=== PATIENT | female | born 1995 | race Caucasian/White ===

== ENCOUNTER 2021-03-12 22:51 | Emergency (ER) | payer OTHER ==
[2021-03-12 23:25] VITALS: BP 111/71; PULSE 79; TEMP 98.8; BMI 32.9
[2021-03-13 02:32] LABS: EPI CELLS 12 /uL (0-25.1); HYALINE CASTS 2 /uL (0-3.1); PH,URINE 6.5 (5.0-8.0); URINE APPEARANCE CLEAR; URINE BACTERIA 178 /uL (0-1359); URINE BILIRUBIN NEGATIVE (NEGATIVE); URINE COLOR YELLOW; URINE GLUCOSE (UA) NEGATIVE (NEGATIVE); URINE KETONE TRACE (NEGATIVE); URINE LEUK ESTERASE NEGATIVE (NEGATIVE); URINE NITRITE NEGATIVE (NEGATIVE); URINE PROTEIN NEGATIVE (NEGATIVE); URINE RBC 19 /uL (0-23.9); URINE UROBILINOGEN 0.2 mg/dL (0.2-1.0); URINE WBC 7 /uL (0-25.8)
[2021-03-13] MEDS ORDERED: CEPHALEXIN MONOHYDRATE 500 MG CAPSULE (UD) PO ONE (02:35)
== END 2021-03-13 03:04 | disposition home or self-care (01) ==
LOC: JER 22:51
DX: O20.0 Threatened abortion (principal); Z3A.01 Less than 8 weeks gestation of pregnancy
CPT/HCPCS: 76801-TC; 81003; 99284-25

== ENCOUNTER 2021-10-16 08:05 | Inpatient (IN) | payer OTHER ==
[2021-10-16 08:56] VITALS: BMI 37.5
[2021-10-16] MEDS ORDERED: OXYTOCIN 30 UNITS in 0.9% NS 30 UNIT/500 ML INFUS.BAG IVPB ONE (09:52)
[2021-10-16] MEDS: ELECTROLYTE-148 SOLN 1,000 ML IV SCH ×2 (09:59→16:39)
[2021-10-16] MEDS ORDERED: OXYTOCIN 30 UNITS in 0.9% NS 30 UNIT/500 ML INFUS.BAG IVPB SCH (12:00)
[2021-10-16] MEDS ORDERED: FENTANYL/BUPIVACAINE/NS/PF - PCEA - 50 ML DISP.SYRIN EP ONE ×2 (15:23→19:54)
[2021-10-16] MEDS ORDERED: BUPIVACAINE HCL/PF 0.25% (2.5MG/ML) 10 ML VIAL ONE (15:31)
[2021-10-16] MEDS: FENTANYL/BUPIVACAINE/NS/PF - PCEA - 50 ML DISP.SYRIN EP SCH ×2 (16:10→19:55)
[2021-10-16] MEDS ORDERED: NALOXONE HCL 0.4 MG/ML VIAL IVPUSH PRN (16:17)
[2021-10-16] MEDS ORDERED: OXYTOCIN 20 UNITS in 0.9% NS 20 UNIT/1,000 ML INFUS.BAG IV ONE (19:49)
[2021-10-16] MEDS ORDERED: LIDOCAINE HCL 1% PRESERVATIVE FREE - 30ML VIAL ONE (19:49)
[2021-10-16] MEDS ORDERED: BENZOCAINE 20% 57 GM BOTTLE TP PRN (22:35)
[2021-10-16] MEDS ORDERED: oxyCODONE HCL 5 MG TABLET PO PRN (22:35)
[2021-10-16] MEDS ORDERED: ACETAMINOPHEN 325 MG TABLET (FP) PO PRN (22:35)
[2021-10-16] MEDS ORDERED: WITCH HAZEL 50% (TUCKS) 40 PAD/JAR PAD TP PRN (22:35)
[2021-10-16] MEDS ORDERED: BENZOCAINE 28 GM HEMORRHOIDAL OINTMENT TP PRN (22:35)
[2021-10-16] MEDS ORDERED: BISACODYL 10 MG SUPP.RECT RC PRN (22:35)
[2021-10-16] MEDS ORDERED: METHYLERGONOVINE MALEATE 0.2 MG/1 ML AMP IM PRN (22:35)
[2021-10-16] MEDS ORDERED: OXYTOCIN 20 UNITS in 0.9% NS 20 UNIT/1,000 ML INFUS.BAG IV SCH (22:45)
[2021-10-17 08:17] LABS: BASO % 0.2 % (0-2.0); EOS % 0.5 % (0-4.5); HEMATOCRIT 27.9 % (32.4-45.2); HEMOGLOBIN 9.3 GM/dL (10.7-15.3); LYMPH % 15.6 % (8-40); MCH 28.9 pg (25.7-33.7); MCHC 33.5 g/dl (32.0-36.0); MEAN CELL VOLUME 86.2 fl (80-96); MEAN PLT VOLUME 9.4 fl (7.5-11.1); MONO % 6.8 % (3.8-10.2); NEUT % 76.9 % (42.8-82.8); PLATELET COUNT 174 10^3/uL (134-434); RBC 3.23 M/mm3 (3.60-5.2); RDW 14.3 % (11.6-15.6); WHITE BLOOD COUNT 11.3 K/mm3 (4.0-10.0)
[2021-10-17] MEDS: IBUPROFEN 600 MG TABLET (FP) PO PRN ×2 (09:27→19:53)
[2021-10-17] MEDS ORDERED: SENNOSIDES/DOCUSATE COMBO (SENNA PLUS) TABLET (UD) PO PRN (22:00)
[2021-10-18 09:00] VITALS: BP 134/89; PULSE 92; TEMP 98.1
== END 2021-10-18 11:55 | disposition home or self-care (01) | DRG 807 ==
LOC: JLDR 08:05 → J3W 23:25
PROVIDERS: ADMIT Specialist; ATTEND Specialist
PROC: 0HQ9XZZ Repair Perineum Skin, External Approach (ICD-10-PCS; principal; 2021-10-16)
PROC: 10E0XZZ Delivery of Products of Conception, External Approach (ICD-10-PCS; 2021-10-16)
DX: O70.0 First degree perineal laceration during delivery (principal); Z37.0 Single live birth; O36.63X0 Maternal care for excessive fetal growth, third trimester, not applicable or unspecified; Z3A.38 38 weeks gestation of pregnancy
CPT/HCPCS: 36415; 59409; 85025

== ENCOUNTER 2024-06-14 09:40 | Inpatient (IN) | payer OTHER ==
[2024-06-14 10:26] LABS: BASO % 0.3 % (0-2.0); EOS % 0.4 % (0-4.5); HEMATOCRIT 36.3 % (32.4-45.2); HEMOGLOBIN 12.4 GM/dL (10.7-15.3); LYMPH % 20.4 % (8-40); MCH 28.5 pg (25.7-33.7); MCHC 34.1 g/dl (32.0-36.0); MEAN CELL VOLUME 83.6 fl (80-96); MEAN PLT VOLUME 9.3 fl (7.5-11.1); MONO % 6.1 % (3.8-10.2); NEUT % 72.8 % (42.8-82.8); PLATELET COUNT 178 10^3/uL (134-434); RBC 4.34 M/mm3 (3.60-5.2); RDW 14.8 % (11.6-15.6); WHITE BLOOD COUNT 8.3 K/mm3 (4.0-10.0)
[2024-06-14 10:32] LABS: INR 0.91 (0.83-1.09); PROTHROMBIN TIME (PATIENT) 10.5 SEC (9.7-13.0)
[2024-06-14 10:34] LABS: ACTIVATED PTT 28.2 SECONDS (25.2-36.5)
[2024-06-14] MEDS: OXYTOCIN 20 UNITS in 0.9% NS 20 UNIT/1,000 ML INFUS.BAG IV SCH (10:34)
[2024-06-14 10:41] LABS: CHLORIDE 104 mmol/L (98-107); POTASSIUM 3.7 mmol/L (3.5-5.1); SODIUM 136 mmol/L (136-145)
[2024-06-14 10:42] LABS: CALCIUM 9.4 mg/dL (8.5-10.1)
[2024-06-14 10:43] LABS: ANION GAP 12 mmol/L (4-13); CO2 20 mmol/L (21-32); GLUCOSE,RANDOM 85 mg/dL (74-106)
[2024-06-14 10:46] LABS: CREATININE 0.7 mg/dL (0.55-1.3)
[2024-06-14] MEDS ORDERED: ACETAMINOPHEN INJECTION 100 ML ONE (10:46)
[2024-06-14] MEDS: ACETAMINOPHEN 1000 MG/100 ML BAG IVPB ONE (10:55)
[2024-06-14] MEDS: LACTATED RINGERS SOLUTION 1,000 ML/1,000 ML INFUS.BAG IV SCH (11:04)
[2024-06-14] MEDS ORDERED: BENZOCAINE 28 GM HEMORRHOIDAL OINTMENT TP PRN (11:30)
[2024-06-14] MEDS ORDERED: ACETAMINOPHEN 325 MG TABLET (FP) PO PRN (11:30)
[2024-06-14] MEDS ORDERED: WITCH HAZEL 50% (TUCKS) 40 PAD/JAR PAD TP PRN (11:30)
[2024-06-14] MEDS ORDERED: METHYLERGONOVINE MALEATE 0.2 MG/1 ML AMP IM PRN (11:30)
[2024-06-14] MEDS ORDERED: BISACODYL 10 MG SUPP.RECT RC PRN (11:30)
[2024-06-14] MEDS ORDERED: oxyCODONE HCL 5 MG TABLET PO PRN (11:30)
[2024-06-14 11:46] LABS: CORD BASE EXCESS -1.5 mmol/L (0-2); CORD PCO2 26.7 mmHg (30-78); CORD pH 7.493 (7.14-7.44)
[2024-06-14 11:48] LABS: HIV INTERPRETATION NEGATIVE (NEGATIVE)
[2024-06-14 13:28] VITALS: BMI 34.3
[2024-06-14] MEDS: IBUPROFEN 600 MG TABLET (FP) PO PRN (14:10)
[2024-06-15 07:32] LABS: BASO % 0.4 % (0-2.0); EOS % 1.3 % (0-4.5); HEMATOCRIT 28.6 % (32.4-45.2); HEMOGLOBIN 9.6 GM/dL (10.7-15.3); LYMPH % 25.8 % (8-40); MCH 28.8 pg (25.7-33.7); MCHC 33.5 g/dl (32.0-36.0); MEAN CELL VOLUME 85.8 fl (80-96); MEAN PLT VOLUME 9.5 fl (7.5-11.1); MONO % 6.7 % (3.8-10.2); NEUT % 65.8 % (42.8-82.8); PLATELET COUNT 142 10^3/uL (134-434); RBC 3.34 M/mm3 (3.60-5.2); RDW 14.5 % (11.6-15.6); WHITE BLOOD COUNT 10.7 K/mm3 (4.0-10.0)
[2024-06-15] MEDS: BENZOCAINE 20% 57 GM BOTTLE TP PRN (09:17)
[2024-06-15] MEDS: PRENATAL VITAMINS W/ FOLIC ACID TABLET (FP) PO SCH (09:17)
[2024-06-15] MEDS: FLU VACCINE (FLULAVAL) PF 45 MCG/0.5 ML SYRINGE 2024-2025 IM ONE (10:03)
[2024-06-15] MEDS: SENNOSIDES/DOCUSATE COMBO (SENNA PLUS) TABLET (UD) PO PRN (23:25)
[2024-06-16 09:13] VITALS: BP 122/69; PULSE 75; RESP 20; TEMP 98.9
== END 2024-06-16 12:05 | disposition home or self-care (01) | DRG 560 ==
LOC: JLDR 09:40 → J3W 12:58
PROVIDERS: ADMIT Obstetrics & Gynecology; ATTEND Obstetrics & Gynecology
PROC: 10E0XZZ Delivery of Products of Conception, External Approach (ICD-10-PCS; principal; 2024-06-14)
DX: O80 Encounter for full-term uncomplicated delivery (principal); Z3A.38 38 weeks gestation of pregnancy; Z37.0 Single live birth
CPT/HCPCS: 36415; 36600; 59409; 80048; 82803; 85025; 85610; 85730; 86780; 86850; 86900; 86901; 87389; 90656; G0008; J0131